=== PATIENT | female | born 1955 | race Caucasian/White ===

== ENCOUNTER 2024-05-05 03:57 | Emergency (ER) | payer MEDICARE, OTHER ==
[2024-05-05 04:26] VITALS: BP 186/100; O2SAT 98
--- NOTE | 2024-05-05 04:38 | ED Physician Documentation ---
History of Present Illness - Stated complaint Stated Complaint: L HAND FINGER SWELLING - Chief complaint Chief Complaint: Ext Problem - History obtained from History obtained from: Patient - Additonal information Additional information: 68-year-old woman with history of hypothyroidism presents with swelling to PIP joint of left fourth finger starting this evening. Patient did have her wedding band on and it was taken off in triage by nursing. She notes that she did not injure the finger, does not have pain there but did notice swelling and then took 50 mg of Benadryl with resolution of itching. The swelling is still present. She has full range of motion of the finger. Patient is right-hand dominant. Note that patient states she has had increased urticarial reactions when outdoors recently but knows of no allergen exposure recently. 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 - Present Medications Home Medications: Ambulatory Orders Medication Instructions Recorded Confirmed Clindamycin HCl 300 mg PO Q6H #28 capsule 08/08/13 HYDROcod/ACETAM 5/325 [Vicodin 1 - 2 ea PO Q6H PRN #10 tablet 08/08/13 5/325] Levothyroxine Sodium [Synthroid] 100 mcg PO DAILY 08/08/13 08/08/13 Sulfamethox/Trimeth 800/160 1 each PO BID 08/08/13 08/08/13 [Bactrim Ds] - Allergies Allergies/Adverse Reactions: Allergies Allergy/AdvReac Type Severity Reaction Status Date / Time cephalexin monohydrate * Allergy Rash Verified 05/05/24 04:22 [From Keflex] erythromycin base Allergy Rash Verified 05/05/24 04:22 [Erythromycin Base] - Social History Does the pt smoke?: No Smoking Status: Never smoker Does the pt have substance abuse?: No - Immunizations Immunizations are current?: Yes - POLST Patient has POLST: No PD ED PE NORMAL - Vitals Vital signs reviewed: Yes - General General: Alert and oriented X 3, No acute distress, Well developed/nourished - HEENT HEENT: Atraumatic, PERRL, EOMI - Neck Neck: Supple, no meningeal sign - Derm Derm: Normal color, Warm and dry - Extremities Extremities: Other (swelling with palpable edema to anterior aspect of LUE fourth DIP joint. normal sensation, movement, and strength. cap refill intact) Results - Vitals Vitals: Vital Signs - 24 hr 05/05/24 04:20 Temperature 36 C L Heart Rate 68 Respiratory 18 Rate Blood Pressure 186/100 H O2 Saturation 98 Oxygen O2 Source Room air PD Medical Decision Making - ED course ED course: 68-year-old woman presents with swelling of left fourth PIP joint, likely allergic in origin given she had pruritus that resolved with benadryl. no visible insect bite or site of injury. discussed reasons for emergent return. plan to f/u with pcp. steroid and pepcid given in addition to her home benadryl. Departure - Departure Disposition: 01 Home, Self Care Clinical Impression: Finger swelling Condition: Stable Instructions: ED Allergic Reaction Local Other Comments: You were seen in the emergency department for Likely allergic reaction versus autoimmune reaction. Please follow-up with your primary care provider and return to the emergency department if you have any new or worsening symptoms or other concerns.
[2024-05-05] MEDS: CHERRY SYRUP 10 ML UDC PO ONE (04:41)
[2024-05-05] MEDS: DEXAMETHASONE 10 MG/ML VIAL PO STA (04:41)
[2024-05-05] MEDS: FAMOTIDINE 20 MG TABLET PO STA (04:41)
== END 2024-05-05 04:46 | disposition home or self-care (01) ==
LOC: ED 03:57
DX: M79.89 Other specified soft tissue disorders (principal); E03.9 Hypothyroidism, unspecified
CPT/HCPCS: 99283; A9270